=== PATIENT | female | born 1960 | race Caucasian/White ===

== ENCOUNTER 2017-05-24 16:11 | Emergency (ER) | payer BC ==
--- NOTE | 2017-05-24 17:18 | Emergency Department Record ---
History of Present Illness - General Chief Complaint: Laceration(s) Stated Complaint: LACERATION ON LEFT RING FINGER Time Seen by Provider: 05/24/17 17:05 Source: Patient Mode of Arrival: Ambulatory Limitations: No limitations - History of Present Illness Initial Commments: 57 year old female lacerated her left ring finger with a kitchen knife just prior to arrival. No loss or changes in sensation or function. No other complaints or recent illnesses. Onset/Timin -: Minutes(s) Extremity Location: Left: Hand Place: Home Context: Accidental Associated Symptoms: None Treatments Prior to Arrival: Bandage - Elza Coma Scale Eye Response: (4) Open spontaneously Motor Response: (6) Obeys commands Verbal Response: (5) Oriented Elza Total: 15 - Related Data Allergies Allergy/AdvReac Type Severity Reaction Status Date / Time cefaclor [From Ceclor] Allergy RASH Verified 05/24/17 16:45 Sulfa (Sulfonamide Allergy RASH Verified 05/24/17 16:45 Antibiotics) Travel Screening - Travel/Exposure Within Last 30 Days Have you traveled within the last 30 days?: No - Travel/Exposure Within Last Year Have you traveled outside the [place] in the last year?: No - Additonal Travel Details Have you been exposed to anyone with a communicable illness?: No - Travel Symptoms Symptom Screening: None Review of Systems Constitutional: Denies: Chills, Fever, Malaise, Weakness Eyes: Denies: Eye discharge ENT: Denies: Congestion, Ear pain, Throat pain Respiratory: Denies: Cough Cardiovascular: Denies: Chest pain Endocrine: Denies: Fatigue Gastrointestinal: Denies: Diarrhea, Nausea, Vomiting Genitourinary: Denies: Dysuria Musculoskeletal: Denies: Arthralgia, Joint swelling Skin: Reports: Other (laceration). Denies: Bruising, Change in color, Rash Neurological: Denies: Headache Psychiatric: Denies: Anxiety Hematological/Lymphatic: Denies: Easy bleeding, Easy bruising Past Medical History - SOCIAL HISTORY Smoking Status: Former smoker Alcohol Use: Occasional Drug Use: None - RESPIRATORY Hx Respiratory Disorders: No - CARDIOVASCULAR Hx Cardio Disorders: No - NEURO Hx Neuro Disorders: No - GI Hx Reflux: Yes Hx Hiatal Hernia: Yes - Hx Genitourinary Disorders: No - ENDOCRINE Hx Diabetes: No Hx Thyroid Disease: No - MUSCULOSKELETAL Hx Arthritis: Yes Hx Fibromyalgia: Yes - PSYCH Hx Psych Problems: No - HEMATOLOGY/ONCOLOGY Hx Hematology/Oncology Disorders: No Hx Cancer: No Family Medical History Any Significant Family History?: Yes Physical Exam - General General Appearance: Alert, Oriented x3, Cooperative, No acute distress Limitations: No limitations - Head Head exam: Atraumatic, Normal inspection - Eye Eye exam: Normal appearance - ENT ENT exam: Normal exam Ear exam: Normal external inspection Nasal Exam: Normal inspection Mouth exam: Normal external inspection - Neck Neck exam: Normal inspection - Cardiovascular Cardiovascular Exam: Regular rate Peripheral Pulses: 2+: Radial (L) - Rectal Rectal exam: Deferred - exam: Deferred - Extremities Extremities exam: Full ROM, Normal capillary refill, Tenderness. negative: Normal inspection, Joint swelling Image of Finger Tip: 1 - superficial laceration, no separtion, full ROM, full stress of extension without pain or limitation - Neurological Neurological exam: Alert, Oriented X3 - Psychiatric Psychiatric exam: Normal affect, Normal mood - Skin Skin exam: Other (laceration) Course Vital Signs 05/24/17 16:33 Temperature 98.2 F Pulse Rate 84 Respiratory 16 Rate Blood Pressure 147/88 Pulse Ox 96 - Reevaluation(s) Reevaluation #1: I discussed the options of repair Given superficial location and proximity to eponychial fold dermabond and streristrips recommended Betadine prep and NS cleaning Dermabond and Steristrips applied with good results for coverage and healing Disposition Disposition: Discharge Clinical Impression: Finger laceration Qualifiers: Encounter type: initial encounter Finger: ring finger Damage to nail status: unspecified Foreign body presence: unspecified Laterality: left Qualified Code(s ): S61.215A - Laceration without foreign body of left ring finger without damage to nail, initial encounter Disposition: Home, Self-Care Condition: (1) Good Instructions: Laceration (ED) Additional Instructions: Return if you have pain, swelling, fever, redness or any new concerns Leave the glue and steristrips on one week Forms: Patient Portal Access Time of Disposition: 17:21 Quality - Quality Measures Quality Measures: N/A - Blood Pressure Screening View Details: Yes Blood Pressure Classification: Pre-Hypertensive BP Reading Systolic Measurement: 147 Diastolic Measurement: 88 Screening for High Blood Pressure: < Pre-Hypertensive BP, F/U Documented > [ [id number]] Pre-Hypertensive Follow-up Interventions: Referral to alternative/primary care provider.
== END 2017-05-24 18:05 | disposition home or self-care (01) ==
LOC: ER 16:11
DX: S61.215A Laceration without foreign body of left ring finger without damage to nail, initial encounter (principal); W26.0XXA Contact with knife, initial encounter; Y92.000 Kitchen of unspecified non-institutional (private) residence as the place of occurrence of the external cause
CPT/HCPCS: 99282

== ENCOUNTER 2017-12-28 07:42 | Day surgery (SDC) | payer BC ==
--- NOTE | 2017-11-27 15:30 | History and Physical Report ---
CHIEF COMPLAINT: ABDOMINAL PAIN. HISTORY OF PRESENT ILLNESS: I saw Ms. Hurtado in the office on 11/23/2017 in regard to her abdominal pain. The patient is a 49-year-old female who states she has been having abdominal pain for years. She states this is in the right upper quadrant, usually happens postprandially and after taking too much powder for arthritis. She had an ultrasound done in 2015 which did show a 13 mm polyp but they could not rule out a malignancy. She elected to do nothing about these. She states that she has been having some ongoing discomfort. She did see a manager icu who re-ordered the ultrasound. This did show the aforementioned polyp, which had not changed in size. There was no pericholecystic fluid or gallbladder wall thickening that they noted. PAST MEDICAL HISTORY: Significant for GERD, obesity, irritable bowel. PAST SURGICAL HISTORY: Right knee arthroscopy, hysterectomy, appendectomy. MEDICATIONS ON ADMISSION: CURRENT MEDICATIONS: Nexium Trazodone Losartan Bupropion Bumex Bentyl Multivitamin ALLERGIES: SULFA, LISINOPRIL, ALEVE, TYLENOL, CECLOR. SOCIAL HISTORY: She denies any tobacco usage. She describes alcohol intake as social. RADIOGRAPHIC DATA: I did review her ultrasound which did show a stable 13 mm polyp in the gallbladder. PHYSICAL EXAMINATION: VITAL SIGNS: Height 5 feet 9 inches, weight 250 pounds. She is afebrile. Vital signs are stable. HEART: Regular. LUNGS: Clear. ABDOMEN: Soft. There is some mild tenderness on palpation. EXTREMITIES: No trace of edema. IMPRESSION AND PLAN: At this point, we had a long discussion. I let her know that polyps over the size of 10 mm may have a slight increased chance of underlying malignancy. We also discussed the stability of her polypoid lesion. I gave her options of medical management versus surgical intervention. She desires surgical intervention. Risks include bleeding, infection, ductal injury , possible conversion to open, postoperative bile leak, and nonresolution of her symptoms. She understood this fully. CC: Dr. Kaleb RUSSELL
[~2017-12-28 07:42] MED LIST: FAMOTIDINE 20MG TABLET PO ONE; MECLIZINE 25 MG TABLET PO ONE; METOCLOPRAMIDE 10 MG TABLET PO ONE
[2017-12-28] MEDS ORDERED: ROCURONIUM BROMIDE 50MG/5ML VIAL IV ONE (07:43)
[2017-12-28] MEDS ORDERED: HYDROCODONE/APAP 5/325MG TABLET PO ONE (07:43)
[2017-12-28] MEDS ORDERED: BUPIVACAINE 0.25% W/EPI MPF 30ML VIAL IVP ONE (07:43)
[2017-12-28] MEDS ORDERED: FENTANYL PF 100MCG/2ML VIAL IV ONE ×2 (07:43)
[2017-12-28] MEDS ORDERED: SUCCINYLCHOLINE 20 MG/ML 10ML IVP ONE (07:43)
[2017-12-28] MEDS ORDERED: LIDOCAINE 2% MDV (20MG/ML) 20ML VIAL IV ONE (07:43)
[2017-12-28] MEDS ORDERED: DESFLURANE 240 ML BTL INH ONE (07:43)
[2017-12-28] MEDS ORDERED: ONDANSETRON HCL IV 4 MG/2 ML VIAL IVP ONE (07:43)
[2017-12-28] MEDS ORDERED: METOCLOPRAMIDE HCL 10 MG/2 ML VIAL IVP ONE (07:43)
[2017-12-28] MEDS ORDERED: PROPOFOL 10 MG/ML VIAL IV ONE (07:43)
--- NOTE | 2017-12-29 11:20 | Operative Note ---
DATE OF SURGERY: 12/28/2017 Surgeon: Martir Rodriguez DO PREOPERATIVE DIAGNOSES: 1. Abdominal pain. 2. A 13 mm gallbladder polyp. OPERATION: Laparoscopic cholecystectomy. Indication: The patient is a 49-year-old female who came into the clinic with ongoing right subcostal pain. Imaging studies did reveal a 13 mm polyp in the gallbladder. We did discuss cholecystectomy versus medical management. She desired surgical intervention. Risks include but are not limited to bleeding, infection, acute or chronic pain, bile leak, nonresolution of her symptoms. She understood this fully. PROCEDURE: Thereafter, consent was signed and questions answered. She was taken to the operating room and placed in a supine position. General anesthesia was administered per the department of anesthesia. The patient's abdomen was prepped and draped in the usual sterile fashion. The supraumbilical region was anesthetized with a total of 3 mL of 0.25% Sensorcaine with epinephrine. A 2 cm supraumbilical incision was made. This was carried down to the anterior rectus fascia. This was incised. Aristeo clamps were placed on the fascial edges and brought up into the wound. Stay sutures of 0 Vicryl were placed. Posterior rectus sheath was identified and incised. The peritoneal cavity was entered bluntly. At this time, a 10 mm blunt Isabella port was placed. Adequate pneumoperitoneum was established. The patient was then rotated into steep reverse Trendelenburg with rotation to left. Under direct visualization, additional 5 mm epigastric and two 5 mm right subcostal ports were placed. The gallbladder identified in subhepatic space. It was noted to be somewhat thickened and inflamed. This was retracted in a cephalad and lateral direction opening up the angle of Calot. The hepatocystic triangle was thoroughly dissected out. There was no aberrant anatomy, no posterior ductal structures. The cystic duct and cystic artery were clearly identified. At this point, I did switch to a dome-down technique where the gallbladder was taken off in an integrated fashion meeting up with our anterior dissection. This freed up the entire gallbladder in a 360-degree fashion. The cystic duct and artery were doubly clipped and cut in a standard fashion. Gallbladder was placed in an EndoCatch and brought out through the infraumbilical port. Right upper quadrant was noted to be hemostatic. No bleeding. No bile leak. No bowel injury noted. The patient was leveled out. The pneumoperitoneum was released. All ports were removed. The fascia was closed with 0 Vicryl in a [id number] fashion. The skin of all ports was closed with 4-0 Vicryl. She was taken to the recovery room in satisfactory condition. FINDINGS AT THE TIME OF SURGERY: Chronic cholecystitis, gallbladder polyp. CC: Topher RUSSELL
== END 2017-12-28 11:29 | disposition home or self-care (01) ==
LOC: SUR 07:42
PROVIDERS: ATTEND Surgery
DX: K82.4 Cholesterolosis of gallbladder (principal); R10.9 Unspecified abdominal pain; I10 Essential (primary) hypertension
CPT/HCPCS: 47562; 00790; J2405; J3010; J0330; J2765

== ENCOUNTER 2018-05-11 13:18 | Emergency (ER) | payer BC ==
--- NOTE | 2018-05-11 13:27 | Emergency Department Record ---
History of Present Illness - General Stated complaint: RT KNEE PAIN Time Seen by Provider: 05/11/18 13:20 Source: Patient, Family Mode of Arrival: Ambulatory Limitations: No limitations - History of Present Illness Initial comments: 58 yo female presents with right knee pain. She was walking at work yesterday at [employer]. She stepped and felt a pain over the medial knee. No swelling. The pain has persisted. She has had two prior scopes with Dr Payne and Dr Sullivan. No fever. No redness. She is using crutches. MD Complaint: Joint pain -: Days(s) (1) Location: Knee -: Yes Arthralgia Radiation: Distal Quality: Aching Consistency: Constant Improves with: Elevation Worsens with: Palpation, Weight bearing Associated Symptoms: Denies other symptoms - Related Data Home Medications Medication Instructions Recorded Confirmed Last Taken Armodafinil 200 mg PO ASDIR 05/11/18 05/11/18 05/11/18 Bumetanide 0.5 mg PO DAILY 05/11/18 05/11/18 05/11/18 Bupropion HCl [Bupropion HCl Sr] 150 mg PO BID 05/11/18 05/11/18 05/11/18 Diclofenac Sodium 1 inch TOP ASDIR 05/11/18 05/11/18 05/11/18 Esomeprazole Magnesium [Nexium] 40 mg PO DAILY 05/11/18 05/11/18 05/11/18 Losartan Potassium 100 mg PO DAILY 05/11/18 05/11/18 05/11/18 Trazodone HCl [Desyrel] 50 mg PO QHS 05/11/18 05/11/18 05/10/18 Previous Rx's Medication Instructions Recorded Hydrocodone/APAP 5/325Mg [[place] 1 each PO Q6H #5 tab 05/11/18 5Mg/325Mg] Allergies Allergy/AdvReac Type Severity Reaction Status Date / Time cefaclor [From Ceclor] Allergy RASH Verified 05/11/18 13:27 Sulfa (Sulfonamide Allergy RASH Verified 05/11/18 13:27 Antibiotics) acetaminophen [From Tylenol] AdvReac PT UNSURE Verified 05/11/18 13:27 OF REACTION levofloxacin [From Levaquin] AdvReac PT UNSURE Verified 05/11/18 13:27 OF REACTION lisinopril AdvReac PT UNSURE Verified 05/11/18 13:27 OF REACTION naproxen [From Aleve] AdvReac PT UNSURE Verified 05/11/18 13:27 OF REACTION Review of Systems Constitutional: Denies: Chills, Fever, Malaise, Weakness Eyes: Denies: Eye discharge ENT: Denies: Congestion, Throat pain Respiratory: Denies: Cough Cardiovascular: Denies: Chest pain, Syncope Endocrine: Denies: Fatigue Gastrointestinal: Denies: Abdominal pain, Diarrhea, Nausea, Vomiting Genitourinary: Denies: Dysuria, Urgency Musculoskeletal: Reports: Arthralgia. Denies: Joint swelling Skin: Denies: Bruising, Change in color, Rash Neurological: Denies: Numbness, Tingling, Weakness Psychiatric: Denies: Anxiety Hematological/Lymphatic: Denies: Blood Clots, Easy bleeding, Easy bruising, Swollen glands Past Medical History - SOCIAL HISTORY Smoking Status: Former smoker - RESPIRATORY Hx Respiratory Disorders: No - CARDIOVASCULAR Hx Cardio Disorders: Yes Hx Hypertension: Yes Hx Palpitations: Yes (with stress) - NEURO Hx Neuro Disorders: Yes Hx Headaches: Yes (TMJ) Comment:: cleft palate repair as a child - GI Hx GI Disorders: Yes Hx Abdominal Pain: Yes Hx Reflux: Yes Hx Hiatal Hernia: Yes Hx of Polyps: Yes - Hx Genitourinary Disorders: No Comment:: post hyst - ENDOCRINE Hx Diabetes: No Hx Thyroid Disease: No - MUSCULOSKELETAL Hx Musculoskeletal Disorders: Yes Hx Arthritis: Yes Hx Fibromyalgia: Yes (severe) - PSYCH Hx Psych Problems: Yes Hx Anxiety: Yes Hx Depression: Yes - HEMATOLOGY/ONCOLOGY Hx Hematology/Oncology Disorders: No Hx Cancer: No Family Medical History Hx Cancer: Mother Hx Heart Disease: Grandparents Physical Exam - General General Appearance: Alert, Oriented x3, Cooperative, No acute distress Limitations: No limitations - Head Head exam: Atraumatic, Normal inspection - Eye Eye exam: Normal appearance - ENT ENT exam: Normal exam Ear exam: Normal external inspection Nasal Exam: Normal inspection Mouth exam: Normal external inspection - Neck Neck exam: Normal inspection - Cardiovascular Cardiovascular Exam: Regular rate - Rectal Rectal exam: Deferred - exam: Deferred - Extremities Extremities exam: Normal inspection, Full ROM, Normal capillary refill, Tenderness. negative: Joint swelling Image of Full Body: 1 - medial joint line tenderness, no swelling or palpable effusion, quads and patellar intact, no lateral joint tenderness, no calf tenderness, patella is non tender - Back Back exam: Reports: Full ROM - Neurological Neurological exam: Alert, Oriented X3 - Psychiatric Psychiatric exam: Normal affect, Normal mood. negative: Agitated, Anxious - Skin Skin exam: Dry, Intact, Normal color, Warm Course - Reevaluation(s) Reevaluation #1: The XR was reviewed No acute fracture, degenerative changes most noted medially We discussed the results, off work, follow up with her PCP and her orthopedist 05/11/18 15:11 Disposition Disposition: Discharge Clinical Impression: Strain of knee and leg, right Qualifiers: Encounter type: initial encounter Qualified Code(s): S86.911A - Strain of unspecified muscle(s) and tendon(s) at lower leg level, right leg, initial encounter Disposition: Home, Self-Care Condition: (1) Good Instructions: Knee Sprain (ED) Additional Instructions: Ice and elevate to minimize pain and swelling Use the crutches for support and comfort Call your doctor and your orthopedic doctor for close follow up Take a copy of the XR with you to the follow up appointment If your pain continues you may need further work up with orthopedics or outpatient MRI. Prescriptions: Hydrocodone/APAP 5/325Mg [[place] 5Mg/325Mg] 1 each PO Q6H #5 tab Forms: Patient Portal Access Time of Disposition: 15:12 Quality - Quality Measures Quality Measures: N/A - Blood Pressure Screening Does Patient Have Any of the Following: Active Dx of HTN Blood Pressure Classification: Pre-Hypertensive BP Reading Systolic Measurement: 156 Diastolic Measurement: 82 Screening for High Blood Pressure: Patient Exclusion, Hx of HTN [G9744]
--- NOTE | 2018-05-12 08:55 | RADIOLOGY REPORT ---
EXAM: RIGHT KNEE COMPLETE HISTORY: ANTEROMEDIAL KNEE PAIN ONE DAY POST TWISTING INJURY. TECHNIQUE: AP, oblique, lateral, and tunnel views of the right knee were obtained. A repeat lateral view is also obtained. Comparison: None. FINDINGS: There is borderline to mild osteopenia. No acute fracture, dislocation, or destructive bone lesion is seen. Tricompartmental osteoarthritic changes are present, moderate in the medial compartment, mild to moderate in the patellofemoral compartment, and lateral compartments. No joint effusion is seen. No suspicious soft tissue abnormality. IMPRESSION: 1. BORDERLINE TO MILD OSTEOPENIA. NO ACUTE FRACTURE NOR DISLOCATION. 2. TRICOMPARTMENTAL DEGENERATIVE CHANGES MOST PRONOUNCED IN THE MEDIAL COMPARTMENT WHERE THEY ARE MODERATE IN DEGREE. JOB NUMBER: [id number] MTDD
== END 2018-05-11 15:29 | disposition home or self-care (01) ==
LOC: ER 13:18
DX: S86.911A Strain of unspecified muscle(s) and tendon(s) at lower leg level, right leg, initial encounter (principal); X50.0XXA Overexertion from strenuous movement or load, initial encounter; Y93.01 Activity, walking, marching and hiking; I10 Essential (primary) hypertension; Z87.891 Personal history of nicotine dependence
CPT/HCPCS: 99283